=== PATIENT | female | born 1965 | race Caucasian/White ===

== ENCOUNTER 2024-10-10 12:51 | Outpatient (CLI) | payer OTHER, SELFPAY ==
--- OUTSIDE RECORDS SUMMARY | 2024-10-10 13:16 | XMS_ITS | Encounter Summary ---
Author Organization [employer] ([place], [place], [place], [place]) Address [address] [place] [address] Care Team Providers Care Bartender Name Role Phone Yvan Quevedo MD Primary Care Provider Encounter Details Date Type Department Care Team (Late st Contact Info) Description 04/15/2022 Outside Orders [facility] Central Scheduling [address] [place] [address] Yvan Quevedo MD [address] [place] [phone] Mass of left breast, unspecified quadrant (Primary Dx) Social History Tobacco Use Types Packs/Day Years Used Date Smoking Tobacco: Never Assessed Comments Unknown Sex and Gender Information Value Date Recorded Sex Assigned at Not on file Legal Sex Female 5:16 PM CDT Gender Identity Not on file Sexual Orientation Not on file documented as of this encounter Plan of Treatment Not on file documented as of this encounter Visit Diagnoses Diagnosis Mass of left breast, unspecified quadrant- Primary documented in this encounter Care Teams Bartender Relationship Specialty Start Date End Date Yvan Quevedo MD [address] [place] [phone] PCP - General Family Medicine 06/10/23 documented as of this encounter
--- OUTSIDE RECORDS SUMMARY | 2024-10-10 13:16 | XMS_ITS | Encounter Summary ---
Author Organization Healthcare Address [address] [place] [address] Care Team Providers Care Adobe Layer Name Role Phone Cam Quevedo Primary Care Provider Unavailabl e Encounter Details Date Type Department Care Team ([facility] st Contact Info) Description 02/11/2023 Orders Only External Location [address] [place] [address] Provider, External Social History Tobacco Use Types Packs/Day Years Used Date Smoking Tobacco: Every Day Cigarettes 1 15 Smokeless Tobacco: Never Alcohol Use Standard Drinks/Week Comments Never 0 (1 standard drink = 0.6 oz pur e alcohol) PHQ-2 Answer Date Recorded Patient Health Questionnaire-2 Score 0 10/09/2021 Comments No Sex and Gender Information Value Date Recorded Sex Assigned at Female 07/22/2021 6:55 AM EDT Legal Sex Female 9:07 AM EDT Gender Identity Female 07/22/2021 6:55 AM EDT Sexual Orientation Straight 07/22/2021 6: 55 AM EDT documented as of this encounter Plan of Treatment Not on file documented as of this encounter Procedures Procedure Name Priority Date/Time Associated Diagnosis Comments XR MSK OUTSIDE IMAGES 02/11/2023 7:23 PM EST documented in this encounter Results * XR MSK OUTSIDE IMAGES (02/11/2023 7:23 PM EST) Anatomical Region Laterality Modality Radiographic Maria Antonia ging 02/11/2023 7:23 PM EST us External Provider IMG XR PROCEDURES Final Result documented in this encounter Visit Diagnoses Not on filedocumented in this encounter Additional Health Concerns Assessment Noted Time A fall risk assessment has been complete d for the patient 10/09/2021 7:54 AM EDT documented as of this encounter Care Teams Adobe Layer Relationship Specialty Start Date End Date Cam Quevedo [address] [place] [address] PCP - General Family Medicine 07/18/21 documented as of this encounter
--- OUTSIDE RECORDS SUMMARY | 2024-10-10 13:16 | XMS_ITS | Clinical Summary ---
Author Organization [employer] ([place], [place], [place], [place]) Address [address] [place] [address] Care Team Providers Care Veneer Stacker Name Role Phone Yvan Quevedo MD Primary Care Provider [phone] Allergies No known active allergies Medications atorvastatin (LIPITOR) 80 MG tablet Take 1 tablet (80 mg total) by mouth daily. 07/03/2023 Active QUEtiapine (SeroqueL) 100 MG tablet 06/09/2014 Active venlafaxine (EFFEXOR-XR) 150 MG 24 hr capsule Take 1 capsule (150 mg total) by mouth daily. 07/03/2023 Active venlafaxine (EFFEXOR-XR) 75 MG 24 hr capsule Take 1 capsule (75 mg total) by mouth. 06/10/1999 Active amoxicillin (AMOXIL) 500 MG capsule TAKE 1 TABLET BY MOUTH EVERY 8 HOURS UNTIL ALL TAKEN Active Active Problems Problem Noted Date Diagnosed Date Right carpal tunnel syndrome 01/26/2024 Osteoarthritis of left acromioclavicular joint 0 08/11/2023 Arthritis of left glenohumeral joint 08/11/2023 Traumatic complete tear of l eft rotator cuff, initial encounter 08/11/2023 Labral tear of long head of biceps tendon, left, sequela 08/11/2023 Family History Medical History Relation Name Comments Arthritis Other Cancer Other Diabetes Other Heart disease Other High blood pressure Other Hyperlipidemia Other Lung disease Other Rheumatologic disease Other Stroke Other Relation Name Status Comments Other Social History Tobacco Use Types Packs/Day Years Used Date Smoking Tobacco: Every Day Cigarettes Smokeless Tobacco: Never Alcohol Use Standard Drinks/Week Comments Not Currently 0 (1 standard drink = 0.6 oz pur e alcohol) Family and Community Support Answer Galileo e Recorded Help with Day to Day Activities Not on file 04/16/2023 Feeling Lonely or Isolated Not on file 04/16 Educational Attainment Answer Date Luis rded Speak language other than [place] Islander at home Not on file 04/16/2023 Want help with school or training Not on file 04/16/2023 Substance Use Answer Date Recorded Used prescription meds for non-medical reasons N ot on file 04/16/2023 Used illegal drugs past 12 months Not on file 04/16/2023 Comments No Sex and Gender Information Value Date Recorded Sex Assigned at Not on file Legal Sex Female 5:16 PM CDT Gender Identity Not on file Sexual Orientation Not on file Last Filed Vital Signs Vital Sign Reading Time Taken Comments Blood Pressure 240/104 04/21/2024 7:30 PM EST Pulse 97 04/21/2024 7:30 PM EST Temperature 36.3 C (97.4 F) 04/21/2024 7:30 PM EST Respiratory Rate 17 04/21/2024 7:30 PM EST Oxygen Saturation 100% 04/21/2024 7:30 PM EST Inhaled Oxygen Concentration - - Weight 68 kg (150 lb) 04/21/2024 7:30 PM EST Height 160 cm (5' 3 ) 04/21/2024 7:30 PM EST Body Mass Index 26.57 04/21/2024 7:30 PM EST Plan of Treatment Health Maintenance Due Date Last Done Comments CT Colonography 1964 Colonoscopy 1964 Colorectal Cancer Screening 1964 FOBT/FIT 1964 Fit-DNA (Cologuard) 1964 Sigmoidoscopy 1964 Depression Screening (12+) 1976 Tobacco Cessation Counseling and Screening (12+) 1976 HIV Screening 12/09/1979 Hepatitis C Screening 1982 DTAP/TDAP/TD VACCINES (1 - Tdap) 12/09/1983 Pap Smear 1985 Lipid Panel 2009 Shingles Vaccine (Zoster) (1 of 2) 2014 COVID-19 VACCINE (2023-2 5 season) 2023 05/03/2022, 10/19/2021, 01/10/2021, Additional history exists Breast Cancer Screening 05/06/2024 05/06/2022, 05/06 Influenza Vaccine (#1) 2024 01/02/2023, 2019 Pneumococcal 50+ years (2 of 2 - PCV) 04/13/2025 04/13/2024 Procedures Procedure Name Priority Date/Time Associated Diagnosis Comments MM DIGITAL MAMMO DIAGNOSTIC WITH ANGE BILATERAL Routine 05/06/2022 10:19 AM EST Mass of left breast, unspecified quadrant from Last 3 Months or Most Recently Relevant to Health Maintenance Results * MM digital mammo diagnostic with ange bilateral (05/06/2022 10:19 AM EST) Anatomical Region Laterality Modality Breast Bilateral Mammography 05/06/2022 11:4 5 AM EST Impressions 05/06/2022 11:48 AM EST FINAL IMPRESSION: ACR BI-RADS 2: Benign findings. RECOMMENDATIONS: Return to screening At our facility, a kenaitze marker is positioned over a visible skin lesion and a linear marker is The results and recommendations were discussed with the patient on the day of her appointment. In addition, a written report in lay terms was given to the patient. Patient information was entered into a reminder system with a target due date for the next mammogram. Narrative 05/06/2022 11:48 AM EST PROCEDURE: Bilateral diagnostic mammogram with Digital Breast Tomosynthesis (DBT) with focused right ultrasound. REASON FOR EXAM: Palpable area of concern left upper quadrant. History of bilateral reduction mammoplasty. FAMILY HISTORY: No family history of breast cancer COMPARISON STUDY: [facility] prior exams dating back to 2012. The most recent exam is 2016. FINDINGS: Craniocaudal and mediolateral oblique images of both breasts were obtained in 2D and DBT modes. Synthesized views were reconstructed from DBT data. Finally, ultrasound of the right 3-3 30 position was performed. The breast tissue has pattern b (scattered fibroglandular densities). On the left there is no focal mass, grouping of calcifications, or distortion to suggest malignancy. Corresponding to the patient's palpable area of concern is a loop recorder. On the right a nodular asymmetry was seen originally on the initial exams. This is effaced with additional rolled views and spot compression. Ultrasound revealed no abnormality to correspond. This examination was reviewed with the benefit of computer aided detection (CAD). us Yvan Quevedo MD IMG MAMMOGRAPHY ORDERABLES F inal Result from Last 3 Months or Most Recently Relevant to Health Maintenance Insurance [facility] [employer] Member Subscriber Plan / Payer (Ef fective 2024-Present) Name:SdCornelia funez Relation to Subscriber:Self Name:SdMaria FernandaBrinda Payer ID:Not on file Group ID:Not on file Type:[facility] Address: [address] [place] [id number] [facility] [place] Advance Directives For more information, please contact: [phone] * Full Code (Latest Code Status on File) Date Activated Date Inactivated Comments 02/15/2024 5:05 AM 02/15/2024 9:43 AM Care Teams Veneer Stacker Relationship Specialty Start Date End Date Yvan Quevedo MD [address] [place] [phone] PCP - General Family Medicine 06/10/23
--- OUTSIDE RECORDS SUMMARY | 2024-10-10 13:16 | XMS_ITS | Encounter Summary ---
Author Organization Healthcare Address [address] [place] [address] Care Team Providers Care Juice Bar Team Member Name Role Phone Cam Quevedo Primary Care Provider Unavailabl e Encounter Details Date Type Department Care Team ([facility] st Contact Info) Description 09/22/2024 Orders Only External Location [address] [place] [address] Provider, External Social History Tobacco Use Types Packs/Day Years Used Date Smoking Tobacco: Every Day Cigarettes 0.5 38.5 Started: 1986 Smokeless Tobacco: Never Alcohol Use Standard Drinks/Week Comments Not Currently 0 (1 standard drink = 0.6 oz pur e alcohol) very rare. PHQ-2 Answer Date Recorded Patient Health Questionnaire-2 [...] Procedure Name Priority Date/Time Associated Diagnosis Comments CT NEURO OUTSIDE IMAGES 09/22/2024 8:45 AM EDT documented in this encounter Results * CT NEURO OUTSIDE IMAGES (09/22/2024 8:45 AM EDT) Anatomical Region Laterality Modality Computed Tomogra phy 09/22/2024 8:45 AM EDT us External Provider IMG CT PROCEDURES Final Result documented in this encounter Visit Diagnoses Not on filedocumented in this encounter Additional Health Concerns Assessment Noted Time A fall risk assessment has been complete d for the patient 05/04/2024 3:10 PM EST A Body Mass Index follow-up plan has been documented for the patient 07/01/2024 11:07 AM EDT documented as of this encounter Care Teams Juice Bar Team Member Relationship Specialty Start Date End Date Cam Quevedo [address] [place] [address] PCP - General Family Medicine 07/18/21 documented as of this encounter
--- OUTSIDE RECORDS SUMMARY | 2024-10-10 13:16 | XMS_ITS | Encounter Summary ---
Author Organization [employer] ([place], [place], [place], [place]) Address [address] [place] [address] Care Team Providers Care Supervisor Boarding Name Role Phone Yvan Quevedo MD Primary Care Provider Reason for Referral * Mammography (Routine) - Closed Specialty Diagnoses / Procedures Referred By Contac t Referred To Contact Diagnoses Mass of left breast, unspecified quadrant Procedures MM digital mammo diagnostic with butch bilateral Yvan Quevedo MD [address] [place] [address] Phone: tel: fax: Referral ID Status Reason Start Date Expiration Date Visits Re quested Visits Authorized [id number] Closed 04/21/2022 10/18/2022 1 1 Encounter Details Date Type Department Care Team (Late st Contact Info) Description 04/21/2022 Outside Orders [facility] Central Scheduling [address] [place] [address] Yvan Quevedo MD [address] [place] [address] Mass of left breast, unspecified quadrant [...] on file documented as of this encounter Results * MM digital mammo diagnostic with butch bilateral (05/06/2022 10:19 AM EST) Anatomical Region Laterality Modality Breast Bilateral Mammography 05/06/2022 11:4 5 AM EST Impressions 05/06/2022 11:48 AM EST FINAL IMPRESSION: ACR BI-RADS 2: Benign findings. RECOMMENDATIONS: Return to screening At our facility, a [place] marker is positioned over a visible skin [...] family history of breast cancer COMPARISON STUDY: [facility] prior exams dating back to 2012. The most recent exam is 2015. FINDINGS: Craniocaudal and mediolateral oblique images of [...] MD IMG MAMMOGRAPHY ORDERABLES F inal Result documented in this encounter Visit Diagnoses Diagnosis Mass of left breast, unspecified quadrant- Primary Mass of left breast, unspecified quadrant documented in this encounter Care Teams Supervisor Boarding Relationship Specialty Start Date End Date Yvan Quevedo MD [address] [place] [phone] PCP - General Family Medicine 06/10/23 documented as of this encounter
--- OUTSIDE RECORDS SUMMARY | 2024-10-10 13:16 | XMS_ITS | Encounter Summary ---
Author Organization Healthcare Address [address] [place] [address] Care Team Providers Care Dietary Aid Name Role Phone Cam Quevedo Primary Care Provider Unavailabl e Encounter Details Date Type Department Care Team ([facility] st Contact Info) Description 10/20/2023 Orders Only External Location [address] [place] [address] Provider, External Social History Tobacco Use Types [...] Associated Diagnosis Comments XR MSK OUTSIDE IMAGES 10/20/2023 11:00 PM EDT documented in this encounter Results * XR MSK OUTSIDE IMAGES (10/20/2023 11:00 PM EDT) Anatomical Region Laterality Modality Radiographic Maria Antonia ging 10/20/2023 11:0 0 PM EDT External Provider IMG XR PROCEDURES Final Result documented in this encounter Visit Diagnoses Not on filedocumented in this encounter Additional Health Concerns Assessment Noted Time A fall risk assessment has been complete d for the patient 10/09/2021 7:54 AM EDT documented as of this encounter Care Teams Dietary Aid Relationship Specialty Start Date End Date Cam Quevedo [address] [place] [address] PCP - General Family Medicine 07/18/21 documented as of this encounter
--- OUTSIDE RECORDS SUMMARY | 2024-10-10 13:16 | XMS_ITS | Encounter Summary ---
Author Organization Healthcare Address [address] [place] [address] Care Team Providers Care Electric Deicer Inspector Name Role Phone Cam Quevedo Primary Care Provider Unavailabl e Encounter Details Date Type Department Care Team ([facility] st Contact Info) Description 02/11/2023 Orders Only External Location [address] [place] [address] Provider, External Social History Tobacco Use Types [...] Diagnosis Comments XR MSK OUTSIDE IMAGES 02/11/2023 7:20 PM EST documented in this encounter Results * XR MSK OUTSIDE IMAGES (02/11/2023 7:20 PM EST) Anatomical Region Laterality Modality Radiographic Maria Antonia ging 02/11/2023 7:20 PM EST us External Provider IMG XR PROCEDURES Final Result documented in this encounter Visit Diagnoses Not on filedocumented in this encounter Additional Health Concerns Assessment Noted Time A fall risk assessment has been complete d for the patient 10/09/2021 7:54 AM EDT documented as of this encounter Care Teams Electric Deicer Inspector Relationship Specialty Start Date End Date Cam Quevedo [address] [place] [address] PCP - General Family Medicine 07/18/21 documented as of this encounter
--- OUTSIDE RECORDS SUMMARY | 2024-10-10 13:17 | XMS_ITS ---
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 [facility], residual vision issues but lymphoma is gone Sleep apnea 07/19/2024 Overview (07/19/2024): confirmed severe JORDANA-wearing CPAP Localized swelling, mass and lump, trunk 025 Solitary pulmonary nodule 06/01/2024 Chest pain, unspecified 05/30/2024 Bronchitis, not specified as acute or chronic Unspecified acute lower respiratory infection Tobacco use disorder 04/29/2024 Abnormal electrocardiogram (ECG) (EKG) Cardiomegaly 04/21/2024 Other right bundle-branch block 04/21/2024 Mass of neck 04/16/2024 Acute maxillary sinusitis, unspecified 5 Right wrist pain 04/11/2024 Unspecified sexually transmitted disease 024 Pain in left thigh 03/11/2024 Tinnitus, bilateral 02/16/2024 Right carpal tunnel syndrome 01/26/2024 Hearing loss 01/12/2024 Paresthesia of skin 12/30/2023 Sprain of unspecified site of left knee, initial encounter 10/20/2023 Other fall on same level, initial encounter 09/28 Benign neoplasm of rectum 09/09/2023 Diverticulosis of large inte spencer without perforation or abscess without bleeding 09/09/2023 Rectal polyp 09/09/2023 Arthritis of left glenohumeral joint 08/11/2023 Labral tear of long head of biceps tendon, left, sequela 08/11/2023 Osteoarthritis of left acromioclavicular joint 0 08/11/2023 Traumatic complete tear of left rotator cuff Strain of muscle(s) and tend on(s) of the rotator cuff of left shoulder, subsequent encounter 08/11/2023 Pain in left shoulder 07/31/2023 Degenerative joint disease involving multiple nissa ints 07/02/2023 Low back pain 03/12/2023 Alcohol abuse 07/24/2022 Chronic obstructive pulmonary disease 07/10/2022 Essential hypertension 05/03/2022 Overview (07/19/2024): on lisinopril because after the stroke they told her they wanted her blood slick Prediabetes 05/03/2022 Mass of left breast 04/15/2022 Soft tissue lesion of shoulder region 07/08/2021 Bipolar II disorder 06/20/2021 Overview (07/19/2024): Problem Code: F31.81; Problem Code Type: ICD-10; Paroxysmal atrial fibrillation 06/20/2021 Overview (07/19/2024): Problem Code: I48.0; Problem Code Type: ICD-10; Removal Reason: Was suspected but never documented; core machine operator has stopped anticoagulation Recurrent major depression in full remission Overview (07/19/2024): Problem Code: F33.42; Problem Code Type: ICD-10; Obesity, Class III, BMI 40-49.9 (morbid obesity) 01/14/2017 Overview (07/19/2024): Added automatically from request for surgery [id number] Status post placement of implantable loop record er 09/10/2016 Overview (07/19/2024): Cryptogenic stroke, 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 If she misses one day has moderate reflux. Has never had an EGD. Stroke 06/03/2016 Overview (07/19/2024): She had confusion and numbness in fingers. CT scan showed ischemic stroke at [facility]. Some residual left handed dexterity loss. Has a cardiac loop recorder to check for a fib because suspicious that it caused stroke but no a fib found thus far. Chronic daily headache 01/30/2016 Current Treatment and Therapy Plans No current plan information found. Past Treatment and Therapy Plans No past plan information found. Lifetime Dose Tracking * Chemical Lifetime Dose Automatic Entry Manual Entr y Fluoro Time 0.6 minutes 0.6 minutes 0 minutes Air Kerma 197.2 mGy 197.2 mGy 0 mGy
--- OUTSIDE RECORDS SUMMARY | 2024-10-10 13:17 | XMS_ITS | Data Portability ---
Author Organization [facility] & [place], [facility] [place] Address [address] [place] [address] Care Team Providers Care Formal Service Waiter Name Role Phone LAURA MORALES Primary Care Provider Assessment No assessment recorded. Plan of Treatment Reminders Order Date Submit Date Provider Last Modified By Organization Details Last Modified Time Details Appointments None record ed. Lab None record ed. Referral None record ed. Procedures None record ed. Surgeries None record ed. Imaging None record ed. Medication Orders None record ed. Patient TargetsNo targets recorded. Patient InstructionsNo instructions recorded. Reason for Referral None Reported. Procedures Surgical History Date Name Laterality Status Provider Name and Address Organization Details Recorded Time 01/04/20 24 EMG/ Nerve Conduction Study completed Ronal Luu M.D [address] [place] [address], [address], [place], [address] [place] 01/07/2024 12:11:47 09/09/19 24 [address]oscopy [address] Jackie Flores [facility] 09/24/2023 10:48:39 Imaging Results None recorded. Procedure Notes None recorded. Medical Equipment None Reported. Allergies No known drug allergies Medications Name Sig Start Date Stop Date Status Note LastModified by Organization Details LastModified Time amoxicillin 500 mg capsule TAKE 1 TABLET BY MOUTH EVERY 8 HOURS UNTIL ALL TAKEN active Not Available Not Available No t Available atorvastatin 80 mg tablet active Not Available Not Available Not Available venlafaxine ER 75 mg capsule,exte nded release 24 hr active Not Available Not Available Not Available ibuprofen 800 mg tablet TAKE 1 TABLET BY MOUTH EVERY 6 HOURS NEEDED FOR PAIN FOR UP TO 10 DAYS active Not Available Not Available N ot Available hydrocodone 5 mg-acetamino phen 325 mg tablet active Not Available Not Available Not Available naltrexone 50 mg tablet active Not Available Not Available Not Available venlafaxine ER 150 mg capsule,exte nded release 24 hr active Not Available Not Available Not Available omeprazole 40 mg capsule,doreen yed release active Not Available Not Available Not Available quetiapine 100 mg tablet active Not Available Not Available Not Available hydrocodone 7.5 mg-acetamino phen 325 mg tablet active Not Available Not Available Not Available cephalexin 500 mg capsule TAKE 1 CAPSULE BY MOUTH THREE TIMES DAILY FOR 7 DAYS active Not Available Not Available N ot Available lidocaine HCl 2 % mucosal solution active Not Available Not Available Not Available bisacodyl 5 mg tablet,delay ed release Take 2 tablets by oral route for 1 day. active Not Available Not Available N ot Available polyethylene glycol 3350 17 gram/dose oral powder Take 17 g by oral route for 2 days. active Not Available Not Available No t Available Vivitrol 380 mg intramuscula r suspension,e xtended release Inject 4 mL every 4 weeks by intramuscul ar route. active Not Available Not Available No t Available Vitals Date Recorded Body height Body mass index (BMI) Body weight Body temperature Oxygen saturation Oxygen saturation in Arterial blood by Pulse oximetry Heart rate Provider Name and Address Organization Details Last Updated DateTime 4 160.02 cm 24.8 kg/m2 91903.9 3 g 98.3 [degF] 100 % 100 % 78 /min Jolie Jovanni [place] - [facility] - [place] & [place] 4 09:32:34 Social History None recorded. Functional Status None recorded. Mental Status None recorded. Family History Nothing Reported. Medical History No medical history recorded. Gynecological HistoryNo gynecological history recorded. Obstetrics History GPAL:G 0 P 0 0 0 0 Past Encounters Encounter ID Performer Location Encounter Start Date Encounter Closed Date Diagnosis/Indication Diagnosis SNOMED-CT Code Diagnosis ICD10 Code Diagnosis Note [id number] Ronal Luu M.D [facility] Neu[facility] [address],[facility] [address] [place] [address] 01/04/2024 09:19:54 01/07/2024 12:16:55 Carpal tunnel syndrome of right wrist 9795874575 03310 G56.01 Paresthesia 43177251 R20 .2 Neuropathic pain 8488780 09 M79.2 Health Concerns Section Related Observation LastModified by Organization Detai ls LastModified Time None Recorded Concern Status LastModified by Organization Details LastModified Time None Recorded Advance Directives Directive None Recorded Payers Insurance Date Sequence Insurance Name Policy Number Policy Starkey Covered Member ID Starkey Member ID Guarantor Name 09/09/2023 2 [place] [id number] Cornelia Sd [id number] Cornelia Sd 01/03/2024 1 [place] [id number] Cornelia A Sd [id number] Cornelia Sd OBGyn Episode No OBEpisode recorded.
--- OUTSIDE RECORDS SUMMARY | 2024-10-10 13:17 | XMS_ITS | Patient Health Record ---
Author Organization [facility] Address [address] [place] [address] Care Team Providers Care Form Press Operator Name Role Phone Unknown, PCP Primary Care Provider Melody new Norm Gee Unavailable [phone] Ella Mcdermott Unavailable [phone] Allergies No Known Allergies Reason For Referral No Information Medications Medication SIG (Take, Route, Frequency, Duration) Notes Start Date End Date Status QUEtiapine Fumarate 100 MG Oral for 30 Days Active Atorvastatin Calcium 80 MG TAKE ONE TABL ET BY MOUTH AT BEDTIME FOR CHOLESTEROL Oral for 90 Days Active Venlafaxine HCl ER 150 MG Oral for 30 Days Active Immunizations Vaccine Route Administration Date Status Comme nts Pneumonia: Pneumovax 23 IM Intramuscular 04/13/2024 Admini stered z2023 FluBLOK, 17 y/o & Older, Quad PDF (0.5mL Admin) IM Intramuscular 01/02/2023 Administered Social History Tobacco Use: Social History Observation Description Date Details (start date - stop date) Current Smoker NA - NA Tobacco Use Question Answer Notes Are you a Current smoker Tobacco Control (Standard) Question Answer Notes Tobacco use: Current smoker How often do you smoke cigarettes? Every day How many cigarettes a day do you smoke? 11-20 How soon after you wake up d o you smoke your first cigarette? 31-60 minutes Are you interested in quitting? Thinking about q uitting Additional Findings: Tobacco user Modera te cigarette smoker (10-19 cigs/day) Problems Problem Type SNOMED Code ICD Code [place] Dates Problem Status W/U Status Risk Notes Problem Bipolar 1 disorder (541750193) Bipolar 1 disorder (F31.9) Active confirmed Problem Dyspnea (495807512) SOB (shortness of breath) (R06.02) Active confirmed Problem Hypoxia (452885504) Hypoxia (R09.02) Active confirmed Problem Cough (67589063) Cough (R05.9) Active confirmed Problem Depression (678703799) Depression (F32.A) Active confirmed Vital Signs Temperature 98.8 degrees Fahrenheit 05/17/2024 Respiratory Rate 18 /min 04/13/2024 Oximetry 93 05/17/2024 Blood pressure diastolic 62 mm Hg 05/17/2024 Height 63 in 05/17/2024 Blood pressure systolic 122 mm Hg 05/17/2024 Weight 150 lbs 05/17/2024 BMI 26.57 kg/m2 05/17/2024 Encounters Encounter Location Date Provider Diagnosis [facility] [address] [facility] [address] [place] [address] 04/13/2024 Ella Mcdermott Acute cough R05.1 ; Acute non-recurrent maxillary sinusitis J01.00 ; Neck mass R22.1 and Encounter for immunization Z23 [facility] [address] [place] [address] 05/17/2024 Norm Gee Lower respiratory infection (e.g., bronchitis, pneumonia, pneumonitis, pulmonitis) J22 ; Hypoxia R09.02 ; SOB (shortness of breath) R06.02 and Cough R05.9 Assessments Encounter Date Diagnosis (ICD Code) Assessment Notes Treatment Notes Treatment Clinical Notes Section Notes 04/13/2024 Acute non-recurrent maxillary sinusitis (ICD-10 - J01.00) Complete the entire course of antibiotics as prescribed, even when symptoms have improved, to prevent a relapse of infection and the development of antibiotic resistance. 04/13/2024 Acute cough (ICD-10 - R05.1) 05/17/2024 Hypoxia (ICD-10 - R09.02) 05/17/2024 Lower respiratory infection (e.g., bronchitis, pneumonia, pneumonitis, pulmonitis) (ICD-10 - J22) Pending chest x-ray Discussed potential differential including mycoplasma pneumonia, pleural effusion, collapsed lung or COPD exacerbation. Patient was agreeable to obtained chest x-ray. However, states she will not be able to go until Thursday05/20/2024. Advised if conditions worsen, we recommend that you receive another evaluation at the emergency room immediately or contact your primary medical clinics after hours call service to discuss your concerns. Lower respiratory infection in the lungs that is caused by bacteria, viruses and other microorganisms. Bacterial pneumonia is treated with antibiotics. Remember to take your antibiotics as prescribed. You should start feeling better in 3-5 days. Take all your medications as prescribed. If your symptoms don't improve or worse, seek medical attention immediately. Take medications as prescribed, do not change the dosing or frequency. Contact us or your pharmacy for questions. See environmental compliance officer insert for full medication information. Make no changes to any previously prescribed medications, unless specifically instructed. Review the provided discharge instructions, they are from a reference library, provided for general informational resources. Most common side effects of medication therapy reviewed in office today. Follow up in the clinic or with PCP in 2-3 days if no improvement or worsening of symptoms. 05/17/2024 SOB (shortness of breath) (ICD-10 - R06.02) 04/13/2024 Neck mass (ICD-10 - R22.1) Patient going to follow up with PCP, Dr. Quevedo. Has had a biopsy done on the thyroid in the past. 05/17/2024 Cough (ICD-10 - R05.9) 04/13/2024 Encounter for immunization (ICD-10 - Z23) Medical Necessity: Adult Vaccine Schedule See scanned Vaccine Administration Consent Form VIS given and discussed, no concerns voiced; Pt instructed to stay in the clinic area for 20 minutes after the injection. Medical necessity for the vaccine must be documented in: 1. Assessment section- in the Notes next to the Z23 code 04/13/2024 Other Monitor your bl ood pressure as it should be less than 120/80. Regularly follow up with the healthcare provider who manages your high blood pressure. Plan Of Treatment Pending Test Test Name Order Date chest x- ray- PA/ Lateral 05/17/2024 Insurance Providers Payer Name Payer Address Payer Phone Subscriber Number Group Number Insured Name Patient Relationship to Insured Coverage Start Date Coverage End Date [employer] [place] [address] [address] [place] [address] [id number] Cornelia King Self - patient is the insured Medical (General) History Medical History History ICD Code Bipolar 1 disorder F31.9 Depression F32.A Surgical History Surgery Date(Month/Year) carpal tunnel Breast Reduction Gastric sleeve ACL x3 hip replacement x3 appendectomy hysterectomy abdominal Hospitalization History Reason Date(Month/Year) childbirth x2
--- OUTSIDE RECORDS SUMMARY | 2024-10-10 13:17 | XMS_ITS | Clinical Summary ---
Author Organization Healthcare Address [address] [place] [address] Care Team Providers Care Beater Room Supervisor Name Role Phone Cam Quevedo Primary Care Provider Unavailabl e Allergies Active Allergy Reactions Criticality Noted Date Comments Wound Dressing Adhesive Rash Low 01/29/2017 EKG electrodes left on for extended time leave rash. Medications atorvastatin (Lipitor) 80 MG tablet Take 1 tablet by mouth nightly. Active venlafaxine XR (Effexor-XR) 75 MG 24 hr capsule Take 1 capsule by mouth in the morning. Do not crush or chew. . Active venlafaxine XR (Effoxor-XR) 150 MG 24 hr capsule Take 1 capsule by mouth in the morning. Do not crush or chew. . Active QUEtiapine (SEROquel) 100 MG tablet Take 1 tablet by mouth nightly. 09/26/2021 Active omeprazole (PriLOSEC) [address] capsule Take 1 capsule by mouth in the morning. 03/09/2024 Active Melatonin 5 MG tablet tablet Take 4 tablets by mouth at night as needed for sleep. Active magnesium 30 MG tablet Take 1 tablet by mouth nightly. Active Multiple Vitamin (multivitamin) capsule Take 1 capsule by mouth daily. Active polyethylene glycol (MiraLax) 17 g packet Take 17 g by mouth. Active amoxicillin-cla vulanate (Augmentin) 875-125 MG tablet Take 1 tablet by mouth. 04/13/2024 Active azithromycin (Zithromax) 250 MG tablet Take 1 tablet by mouth. 05/17/2024 Active benzonatate (Tessalon) 200 MG capsule Take 1 capsule by mouth as needed. Active bisacodyl (Dulcolax) 5 MG EC tablet Take 2 tablets by mouth as needed. Active HYDROcodone-kristi taminophen ([place]) 7.5-325 MG tablet Take 1 tablet by mouth. Active meloxicam (Mobic) 15 MG tablet Take 1 tablet by mouth daily. Active ibuprofen 800 MG tablet Take 1 tablet by mouth as needed. 10/26/2023 Active naltrexone (ReVia) 50 MG tablet Take 1 tablet by mouth daily. Active oxyCODONE-aceta minophen (Percocet) 5-325 MG tablet Take 1 tablet by mouth every 6 hours as needed. Active promethazine-de xtromethorphan (Phenergan-DM) 6.25-15 MG/5ML syrup Take 10 mL by mouth. Active brompheniramine -pseudoephedrin e-DM 30-2-10 MG/5ML syrup Take 5 mL by mouth. 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 [facility], residual vision issues but lymphoma is gone [...] of neck 04/16/2024 Acute maxillary sinusitis, unspecified Right wrist pain 04/11/2024 Unspecified sexually transmitted [...] Removal Reason: Was suspected but never documented; clinical specialist has stopped anticoagulation Recurrent major depression in full remission Overview (07/19/2024): Problem Code: F33.42; Problem Code Type: ICD-10; Obesity, Class III, BMI 40-49.9 (morbid obesity) 01/14/2017 Overview (07/19/2024): Added automatically from request for surgery [id number] Status post placement of implantable loop record [...] fingers. CT scan showed ischemic stroke at [facility]. Some residual left handed dexterity loss. Has a cardiac loop recorder to check for a fib because suspicious that it caused stroke but no a fib found thus far. Chronic daily headache 01/30/2016 Encounters Date Type Department Care Team Description 09/22/2024 Orders Only External Location [address] [place] [id number] Provider, External 08/04/2024 Telephone [facility] [address] [facility] [place] [address] Gladys Marley MD 07/19/2024 Telephone [facility] [place] [address] [facility], [address] [place] [address] Jaclyn Culver RN from Last 3 Months Immunizations Immunization Administration Dates Next Due Hep A, Adult 03/04/2018 Influenza, Unspecified 01/27/2016,12/14/2014 Influenza, injectable, quadrivalent 03/31/2019 Influenza, seasonal, injectable 12/17/2020 Influenza, seasonal, injectable, preservative fr ee 01/12/2024 Pneumococcal Polysaccharide PPV23 04/13/2024 Family History Medical History Relation Name Comments Heart attack Brother Heart attack Father Heart attack Mother Lung cancer Mother Anesthesia problems Neg Hx Malig Hyperthermia Neg Hx Relation Name Status Comments Brother Father Mother Social History Tobacco Use Types Packs/Day Years Used Date Smoking Tobacco: Every Day Cigarettes 0.5 38.5 Started: 1987 Smokeless Tobacco: Never Tobacco Cessation:Ready to Q uit: No; Counseling Given: No Alcohol Use Standard Drinks/Week Comments Not Currently [...] Orientation Straight 07/22/2021 6: 55 AM EDT Last Filed Vital Signs Vital Sign Reading Time Taken Comments Blood Pressure 144/70 06/23/2024 11:15 AM EDT Pulse 84 06/23/2024 11:15 AM EDT Temperature 36.5 C (97.7 F) 06/23/2024 11:15 AM EDT Respiratory Rate 22 06/23/2024 11:15 AM EDT Oxygen Saturation 93% 06/23/2024 11:15 AM EDT Inhaled Oxygen Concentration - - Weight 67.6 kg (149 lb) 06/23/2024 6:25 AM EDT Height 160 cm (5' 3 ) 05/30/2024 1:09 PM EST Body Mass Index 26.39 05/30/2024 1:09 PM EST Plan of Treatment Health Maintenance Due Date Last Done Comments [facility]-Diabetes: Hemoglobin A1C 1964 [facility]-Infant/Child/Adol SDOH Screenings 1964 [facility]- SDOH Screenings 1982 [facility]-Adult SDOH Screenings 1982 [facility]-DTaP,Tdap,and Td Vaccines (1 - Tdap) 12/09/1983 [facility]-Hepatitis B Vaccines (1 of 3 - 19+ 3-dose series) 12/09/1983 [facility]-Zoster Vaccines (1 of 2) 12/09/1983 CT Colonography 2009 Colonoscopy 2009 FIT-DNA 2009 FIT 2009 FOBT 2009 Sigmoidoscopy 2009 [facility]-Colorectal Cancer Screening 2009 [facility]-Depression Screening 10/09/2022 10/09/2021 [facility]-CHPAT-44 Vaccine ( season) 2023 05/03/2022, 10/19/2021, 01/10/2021, Additional history exists [facility]-Breast Cancer Screening 05/06/2024 05/06/2022, 0 05/06/2022 [facility]-Influenza Vaccine (#1) 11/28/202401/11, 12/17/2020, 03/31/2019, Additional history exists [facility]-Pneumococcal Vaccine: 50+ Years (2 of 2 - PCV) 04/13/2025 04/13/2024 [facility]-Hepatitis A Vaccines Aged Out 03/04/2018 No longer eligible based on patient's age to complete this topic [facility]-HIV Screening Completed 10/09/2021 [facility]-Hepatitis C Screening Completed 10/09/2021 [facility]-Obesity Intervention Completed 025, 06/01/2024, 05/04/2024 HPV Vaccines Aged Out No longer eligi ble based on patient's age to complete this topic [facility]-HIB Vaccines Aged Out No longer e ligible based on patient's age to complete this topic [facility]-IPV Vaccines Aged Out No longer e ligible based on patient's age to complete this topic [facility]-Rotavirus Vaccines Aged Out No lo nger eligible based on patient's age to complete this topic Medical Devices Implanted Type Area Farm Management Agent Device Identifier Shelf Expiration Date Model / Serial / Lot Hip Hip Left: Hip Knee Knee Bilateral: Knee Procedures Procedure Name Priority Date/Time Associated Diagnosis Comments CT NEURO OUTSIDE IMAGES 09/23/19 8:45 AM EDT HEPATITIS C ANTIBODY W/REFLEX TO HCV QUANT PCR Routine 10/09/2021 9:51 AM EDT IgG4 related disease (CMS/HCC) High risk medication use HIV 1/2 ANTIBODY/ANTIGEN SCREEN WITH REFLEX TO HIV I/II DIFFERENTIATION Routine 10/09/2021 9:51 AM EDT IgG4 related disease (CMS/HCC) High risk medication use from Last 3 Months or Most Recently Relevant to Health Maintenance Results * CT NEURO OUTSIDE IMAGES (09/22/2024 8:45 AM EDT) Anatomical Region Laterality Modality Computed Tomogra phy 09/22/2024 8:45 AM EDT us External Provider IMG CT PROCEDURES Final Result * HIV 1/2 Antibody/Antigen Screen (10/09/2021 9:51 AM EDT) [facility] HIV 1 & 2 Antibody/Anti gen Screen Nonreactive Nonreactive 10/09/2021 12:32 PM EDT HEALTHCARE LAB Blood Venous blood specimen / Unknown Venipuncture / Unknown 10/09/2021 9:51 AM EDT 10/09/2021 9:51 AM EDT Juventino Nguyen MD LAB BLOOD ORDERABLES Final Resul t Performing Organization Address City/[facility] Co de Phone Number [facility] [address] [place] [address] * Hepatitis C Antibody (10/09/2021 9:51 AM EDT) [facility] Hepatitis C Antibody Negative Negative 10/09/2021 12:30 PM EDT HEALTHCARE LAB Blood Venous blood specimen / Unknown Venipuncture / Unknown 10/09/2021 9:51 AM EDT 10/09/2021 9:51 AM EDT Juventino Nguyen MD LAB BLOOD ORDERABLES Final Resul t [facility]ALTH[facility]ARE [facility] [address] [place] [address] from Last 3 Months or Most Recently Relevant to Health Maintenance Insurance [facility] Care Teams Beater Room Supervisor Relationship Specialty Start Date End Date Cam Quevedo [address] [place] [address] PCP - General Family Medicine 07/18/21
--- OUTSIDE RECORDS SUMMARY | 2024-10-10 13:17 | XMS_ITS | Referral Summary ---
Author Organization [employer] ([place], [place], [place], [place]) Address [address] [place] [address] Care Team Providers Care Cycle Counter Name Role Phone Yvan Quevedo MD Primary Care Provider Allergies No known active allergies Medications atorvastatin [...] head of biceps tendon, left, sequela 08/11/2023 Social History Tobacco Use Types Packs/Day Years [...] Date Luis rded Speak language other than Tongan at home Not on file 04/16/2023 Want [...] 04/21/2024 7:30 PM EST Plan of Treatment Not on file Procedures Procedure Name Priority Date/Time Associated Diagnosis [...] Return to screening At our facility, a tatitlek marker is positioned over a visible skin [...] family history of breast cancer COMPARISON STUDY: [facility] prior exams dating back to 2012. [...] the benefit of computer aided detection (CAD). Yvan Quevedo MD IMG MAMMOGRAPHY ORDERABLES F inal Result from Last 3 Months or Most Recently Relevant to Health Maintenance Insurance [id number] Advance Directives For more information, please contact: [phone] * Full Code (Latest Code Status on File) Date Activated Date Inactivated Comments 02/15/2024 5:05 AM 02/15/2024 9:43 AM Care Teams Cycle Counter Relationship Specialty Start Date End Date Yvan Quevedo MD [address] [place] [phone] PCP - General Family Medicine 06/10/23
--- OUTSIDE RECORDS SUMMARY | 2024-10-10 13:17 | XMS_ITS | Encounter Summary ---
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 Name Role Phone Yvan Quevedo MD Primary Care Provider Encounter Details Date Type Department Care Team (Late st Contact Info) Description 02/11/2024 Surgery Prep [facility] Orthopedics - [address] [phone] Ancelmo Walker PA-C [address] [place] [id number] Social History Tobacco Use Types Packs/Day Years [...] Date Luis rded Speak language other than Marshallese at home Not on file 04/16/2023 Want help with school or training Not on file 04/16/2023 Substance Use Answer Date Recorded Used prescription meds for non-medical reasons N ot on file 04/16/2023 Used illegal drugs past 12 months Not on file 04/16/2023 Comments Unknown Sex and Gender Information Value Date Recorded Sex Assigned at Not on file Legal Sex Female 5:16 PM CDT Gender Identity Not on file Sexual Orientation Not on file documented as of this encounter H&P Notes * Soren Pizano MD - 02/11/2024 7:57 AM EST NAME: Cornelia Beaver CSN: [id number] : 1965 PCP: Yvan Quevedo MD REASON FOR VISIT Right carpal tunnel syndrome HPI Cornelia Beaver is a 58 y.o. female HPI Patient is here to follow up on right hand numbness and tingling after EMG/NCS. Patient reports today that her symptoms are about the same. Patient reports that she is still having numbness and tingling. Patient reports that her pain today int he office is fine. Interval HPI from 12/30/2023 New Complaint Right Wrist/Hand Onset: over a year or more Mechanism of injury: denies Location of pain: whole hand Quality of pain: numbness and tingling Radiation of pain: sometimes will radiate up to the elbow Severity of pain: 7/10 at its worst Worse with: in the morning, or using it a lot, doing her online classes Better with: massage Oral treatments tried: denies Topical treatments tried: Voltaren Bracing tried: Patient has been using a wrist brace at night to sleep, patient reports that it is very uncomfortable and she is unable to wearing while typing Previous surgery on wrist/hand: denies Patient denies any EMG/NCS PREVIOUS PLAN FROM 12/30/2023 Explanation of plan: Based on patient's history, physical exam, review of radiology exams Cornelia has right upper extremity numbness and tingling. She does report wearing a wrist brace at night for the past 2 weeks. We discussed continuing this treatment along with a referral for right upper extremityEMG with nerve conduction. Patient was agreeable with this plan. Will follow-up after test to review results. Return to clinic if condition worsens or new symptoms arise CURRENT MEDICATIONS Current Outpatient Medications Medication Instructions atorvastatin (LIPITOR) 80 mg, oral, Daily QUEtiapine (SeroqueL) 100 MG tablet No dose, route, or frequency recorded. venlafaxine XR (EFFEXOR-XR) 150 mg, oral, Daily venlafaxine XR (EFFEXOR-XR) 75 mg, oral ALLERGIES No Known Allergies PAST MEDICAL/SURGICAL HISTORY Past Medical History: Diagnosis Date Hyperlipidemia Stroke (HCC) Past Surgical History: Procedure Laterality Date REDUCTION MAMMAPLASTY SOCIAL HISTORY Social History Tobacco Use Smoking status: Every Day Types: Cigarettes Smokeless tobacco: Never Substance Use Topics Alcohol use: Not Currently FAMILY HISTORY Family History Problem Relation Name Age of Onset Arthritis Other Cancer Other Diabetes Other Heart disease Other High blood pressure Other Rheumatologic disease Other Stroke Other Hyperlipidemia Other Lung disease Other REVIEW OF SYSTEMS ROS Systemic: Not feeling tired. No fever and no chills. Head: No headache and no sinus pain. Otolaryngeal: No new hearing loss and no nasal passage blockage (stuffiness) within the last 24 hours. Cardiovascular: No chest pain or discomfort and no palpitations. Pulmonary: No dyspnea, wheezing or new cough within the last 24 hours. Gastrointestinal: No heartburn. No nausea. Genitourinary: No urinary loss of control. Endocrine: No temperature intolerance and no new muscle weakness. Musculoskeletal: Musculoskeletal symptoms See HPI. Neurological: No tremor. Psychological: No new anxiety and no recent insomnia. Skin: No localized skin discoloration and no rash. OBJECTIVE There were no vitals filed for this visit. There is no height or weight on file to calculate BMI. Ortho Exam Constitutional: She appears well-developed and well-nourished. Head: Normocephalic and atraumatic. Eyes: No scleral icterus. Neck: No edema and normal range of motion present. Pulmonary/Chest: Effort normal. No accessory muscle usage. No respiratory distress. Neurological: She is alert and cooperative Skin: Skin is warm and dry. No rash noted. Psychiatric: She has a normal mood and affect. Her behavior is normal. Clinical study assistant note and vitals reviewed right wrist/hand -Inspection: no thenar atrophy, no edema, no ecchymosis, skin intact, no breakdown or redness -Palpation: Dorsal: central wrist joint: non-tender 1st dorsal compartment: non-tender ECU: non-tender distal radial shaft & styloid: non-tender distal ulnar shaft & styloid: non-tender Volar: thenar eminence: non-tender scaphoid tubercle: non-tender 1st CMC joint: non-tender -ROM: wrist flexion: 90 degrees, wrist extension: 90 degrees -Strength: 5/5 wrist extension, 5/5 wrist flexion -Special tests: * Scaphoid testing: radial deviation does not elicit pain, palpation of the scaphoid at the anatomical snuffbox does not elicit pain, Telescoping thumb maneuver does not elicit pain, palpation of thescaphoid tubercle does not elicit pain * Prashant test: Negative * Tinel sign: Positive * Phalen's sign: Negative *Tinel sign elbow: Positive *Elbow compression: Negative - Sensation: Numbness and tingling with provocative testing of wrist/hand IMAGING/OUTSIDE REPORTS Personally reviewed EMG/NCS from [facility] Neurology 01/05/2024 Conclusion: This is an abnormal study. There is electrophysiologic evidence of a moderate right nerve entrapment at the wrist. PROCEDURE 01/26/2024 Examination: Point of Care Ultrasound of the right wrist Findings: - Cross sectional area of the median nerve at the wrist measures 0.11cm2 - Cross sectional area of the median nerve at the forearm measures 0.06cm2 - Transverse safe zone- measurement from ulnar edge of median nerve to the ulnar artery or hook of hamate: .63cm - Palmar cutaneous nerve, thenar motor branch, flexor digitorum superficialis, flexor digitorum profundus, 3rd common palmar digital nerve, longitudinal safe zone, transverse carpal ligament, lunate all visualized Interpretation: Findings are consistent with carpal tunnel syndrome. Anatomical findings within thewrist are within acceptable limits for ultrasound guided carpal tunnel release - Ultrasound was performed and interpreted by myself, and the findings above reflect my interpretation - Images obtained and saved on the [facility] Orthopedic ultrasound machine Soren Pizano MD ASSESSMENT Problem List Items Addressed This Visit Right carpal tunnel syndrome DISCUSSION Carpal tunnel syndrome is the effect of abnormal pressure on the median nerve. It can result in a variety of problems, including pain, tingling, numbness, swelling, weakness or clumsiness of the fingers and thumb. Tendon swelling and tendinitis results from a person's own tendency to collect fluid around their tendons and joints. This may be aggravated by repetitive or strenuous activities when the lining around the tendons swells, the pressure cuts off the blood supply to the nerve. Scar tissue may form around the nerve from repeated episodes of pressure. Nerve damage is suspected when any symptoms occur regularly during the day. Electrical nerve study evaluation is indicated in selected cases if there is a question of other nerve compression syndromes, metabolic neuropathy, or nerve damage. Otherwise, management options are based on history and physical examination. In mild cases withtolerable symptoms and no evidence of nerve damage, conservative management is indicated. Nonoperative options include anti-inflammatory medication, vitamin B6, wrist splints while sleeping, and cortisone injection into the carpal tunnel. Risk Factors for failure of conservative management include age greater than 50, constant paresthesias, symptoms greater than 10 months, trigger digits, Phalen's test positive in less than 30 seconds, or any sign of nerve damage. Surgery is indicated for patients who have failed conservative management or have evidence of nerve damage. Additionally, patientswith mild current symptoms who are having other surgery on the same hand should be strongly considered for carpal tunnel release to avoid the difficult problem of acute carpal tunnel syndrome in the p ostoperative period. The longer the nerve is irritated, the less likely it is to have a full recovery. Conservative treatment has the risk of progressive nerve damage from prolonged compression, as well as increasing the chance of developing reflex sympathetic dystrophy. The main surgical risks arepersistence of numbness due to damage that has already occurred to the nerve or from a secondary site of compression, soreness of the palm (pillar pain), as well as the risks of surgery. Today we discussed the option of ultrasound guided carpal tunnel release. This is a minimally invasive ultrasound-guided carpal tunnel release is performed in the surgery center. Only local anesthesia is required. The wrist is ultrasounded and several areas are marked to map out the important neurovasculature and tendons within the region. Once the determined safe zones are thoroughly marked a small incision (4-5mm) is made at the base of the wrist. Next, the device is inserted under the skin with the assistance of direct ultrasound guidance into the carpal tunnel. Once the device is fully visualized, balloons attached to the tip of the device are inflated to protect the surrounding neurovasculature creating an additional safe zone. Next, a sharp cutting hook is deployed from the device and then retracted to cut the transcarpal ligament that makes up the ceiling of the carpal tunnel. Once confirmation of the complete transection of the transcarpal ligament is achieved the device can then be removed . A small Steri-Strip will be placed over the base of the wrist where the initial incision was made. The patient is sent home the same day. The patient is asked to rest the wrist for the rest of the day. Depending on the type of work you do, most people can return to work as soon as their swelling and discomfort is managed. Risks of the procedure include but are not limited to neurovascular damage, no improvement of underlying carpal tunnel symptoms, bleeding, infection. These risks are minimized by proper sterile technique, screening and scanning prior and during the procedure. PLAN Rest the extremity Heating pad for 20 minutes 2-3 times a day Home exercises Discussed carpal tunnel injections can be repeated every three months Discussed results of EMG/NCS Activity as tolerated Continue wrist bracing Explanation of plan: Based on patient's history, physical exam, review of radiology exams Cornelia has right moderate carpal tunnel syndrome. She has tried and failed conservative treatment including bracing. We discussed treatment options including minimally invasive carpal tunnel release versus traditional carpal tunnel release. After considering risks and benefits the patient decided she would like to pursue minimally invasive carpal tunnel release of the right wrist. We will schedule her accordingly Return to clinic if condition worsens or new symptoms arise Return for s/p US guided right carpal tunnel release PA Attestation: Ancelmo Hightower PA-C examined, discussed diagnosis and treatment options, acted as a scribe and transcribed components of the current encounter under the direction of the Attending Provider. Electronically Signed, Ancelmo Walker PA-C 02/15/2024 Soren Hightower MD, personally performed the services described in this documentation, as scribedby Paxton Wolf CMA, in my presence, and is both accurate and complete. Electronically Signed, Soren Pizano MD RAL ADJUSTER documented in this encounter Plan of Treatment Not on file documented as of this encounter Visit Diagnoses Not on filedocumented in this encounter Care Teams Bar Machine Operator Multiple Spindle Relationship Specialty Start Date End Date Yvan Quevedo MD [address] [place] [id number] PCP - General Family Medicine 06/10/23 documented as of this encounter
[2024-10-10 14:56] LABS: Free T4 (Free Thyroxine) 1.28 ng/dl (0.78-2.19)
[2024-10-10 15:13] LABS: Thyroid Stimulating Hormone 2.18 uIU/mL (0.465-4.68)
== END 2024-10-10 23:59 | disposition home or self-care (01) ==
LOC: LAB 12:53
PROVIDERS: Visit Provider Otolaryngology
DX: E03.9 Hypothyroidism, unspecified (principal)
CPT/HCPCS: 36415; 84439; 84443